=== PATIENT | female | born 1960 | race African-American/Black ===

== ENCOUNTER 2016-12-22 10:35 | Emergency (ER) | payer BC, OTHER ==
--- NOTE | 2016-12-22 10:47 | PDOC ---
History of Present Illness - General History Source: Patient Exam Limitations: No Limitations - History of Present Illness Initial Comments: 12/22/16 12:22 The patient is a 56 year old female with a significant PMH of seizures who presents to the emergency department via EMS s/p seizure immediately prior to arrival. The patient reports being at a store and paying for her items when she began to seize up. The patient believes the seizure to have lasted about 5 minutes and denies losing consciousness during this time. She reports almost hitting her head on the counter but denies any injuries. The patients seizure was witnessed by store shoppers and EMS was promptly called. The patient reports compliance with her medications. She denies any recent medication changes. She notes that she has not had a seizure in years, but notes that this episode is consistent with her previous episodes. The patient denies chest pain, shortness of breath, headache and dizziness. Denies fever, chills, nausea, vomit, diarrhea and constipation. Denies dysuria, frequency, urgency and hematuria. Allergies: NKA Past surgical history: None reported. Social history: No reported cigarette, alcohol, or drug use. PCP: Check-ups at [address] [place] [address]. <Bari Johnson - Last Filed: 12/22/16 12:22> - General History Source: Patient Exam Limitations: No Limitations <Bari Darby - Last Filed: 12/22/16 14:50> - General Chief Complaint: Seizure Stated Complaint: SEIZURE Time Seen by Provider: 12/22/16 10:45 Past History <Bari Johnson - Last Filed: 12/22/16 12:22> <Bari Darby - Last Filed: 12/22/16 14:50> - Past Medical History Allergies/Adverse Reactions: Allergies Allergy/AdvReac Type Severity Reaction Status Date / Time No Known Allergies Allergy Verified 12/22/16 10:48 Home Medications: Ambulatory Orders Phenobarbital 30 mg PO QID 12/22/16 Phenytoin Na Extended [Dilantin -] 100 mg PO QID 12/22/16 Review of Systems - Review of Systems Able to Perform ROS?: Yes Comments:: 12/22/16 12:22 GENERAL/CONSTITUTIONAL: (+) Seizure. No fever or chills. No weakness. HEAD, EYES, EARS, NOSE AND THROAT: No change in vision. No ear pain or discharge. No sore throat. CARDIOVASCULAR: No chest pain or shortness of breath. RESPIRATORY: No cough, wheezing, or hemoptysis. GASTROINTESTINAL: No nausea, vomiting, diarrhea or constipation. GENITOURINARY: No dysuria, frequency, or change in urination. MUSCULOSKELETAL: No joint or muscle swelling or pain. No neck or back pain. SKIN: No rash NEUROLOGIC: No headache, vertigo, or loss of consciousness. ENDOCRINE: No increased thirst. No abnormal weight change. HEMATOLOGIC/LYMPHATIC: No anemia, easy bleeding, or history of blood clots. ALLERGIC/IMMUNOLOGIC: No hives or skin allergy. <Bari Johnson - Last Filed: 12/22/16 12:22> *Physical Exam - Vital Signs Last Vital Signs Temp Pulse Resp BP Pulse Ox 98.1 F 122 H 20 159/104 99 12/22/16 10:48 12/22/16 10:48 12/22/16 10:48 12/22/16 10:48 12/22/16 10:48 - Physical Exam Comments: 12/22/16 12:23 GENERAL: Awake, alert, and fully oriented, in no acute distress HEAD: No signs of trauma EYES: PERRLA, EOMI, sclera anicteric, conjunctiva clear ENT: Auricles normal inspection, hearing grossly normal, nares patent, oropharynx clear without exudates. Moist mucosa NECK: Normal ROM, supple, no lymphadenopathy, JVD, or masses LUNGS: Breath sounds equal, clear to auscultation bilaterally. No wheezes, and no crackles HEART: Regular rate and rhythm, normal S1 and S2, no murmurs, rubs or gallops ABDOMEN: Soft, nontender, normoactive bowel sounds. No guarding, no rebound. No masses EXTREMITIES: Normal range of motion, no edema. No clubbing or cyanosis. No cords, erythema, or tenderness NEUROLOGICAL: Cranial nerves II through XII grossly intact. Normal speech, normal gait.No deficits to light touch and temperature in face, upper extremities and lower extremities. 5/5 motor strength in extremities. Finger to nose normal. Toes are downgoing bilaterally. SKIN: Warm, Dry, normal turgor, no rashes or lesions noted. <Bari Johnson - Last Filed: 12/22/16 12:22> Heart Score/ECG Review #1 ECG reviewed & interpreted by me at: 10:50 12/22/16 12:06 NSR 112, LVH, no std/lauro, QTC 453 msec, no HOCM, no WPW, no brugada <Bari Darby - Last Filed: 12/22/16 14:50> ED Treatment Course - LABORATORY CBC & Chemistry Diagram: 12/22/16 10:52 - ADDITIONAL ORDERS Additional order review: Laboratory Results 12/22/16 10:52 Urine Color Yellow Urine Appearance Cloudy Urine pH 5.0 Urine Protein 3+ H Urine Glucose (UA) Negative Urine Ketones Negative Urine Blood Negative Urine Nitrite Negative Urine Bilirubin Negative Urine Urobilinogen Negative Urine RBC 21 Urine WBC 7 Ur Epithelial Cells Few Urine Bacteria Rare Urine Mucus Rare Urine Yeast Rare - Medications Given in the ED: ED Medications Discontinued Medications Generic Name Dose Route Start Last Admin Trade Name Freq PRN Reason Stop Dose Admin Sodium Chloride 1,000 mls @ 1,000 mls/hr 12/22/16 10:48 12/22/16 11:43 Normal Saline - IV 12/22/16 11:47 1,000 mls/hr ASDIR STA Administration <Bari Johnson - Last Filed: 12/22/16 12:22> - LABORATORY CBC & Chemistry Diagram: 12/22/16 10:52 12/22/16 12:50 <Bari Darby - Last Filed: 12/22/16 14:50> Medical Decision Making - Medical Decision Making 12/22/16 10:51 A portion of this note was documented by scribe services under my direction. I have reviewed the details of the note, within reason, and agree with the documentation with the following case summary and management plan written by me. Patient treated in the ED. Nursing notes are reviewed and incorporated into the medical decision-making. Vital signs reviewed. Peripheral IV access obtained by the nurse, laboratory studies are drawn and sent, reviewed and interpreted by myself. Vital Signs Temp Pulse Resp BP Pulse Ox 98.1 F 122 H 20 159/104 99 12/22/16 10:48 12/22/16 10:48 12/22/16 10:48 12/22/16 10:48 12/22/16 10:48 56-year-old pleasant female with history of seizures on 30 mg of phenobarbital every 6 hours, Dilantin 100 mg every 6 hours, reports compliance to medications presents with general tonic clonic seizure. Patient reports her last seizure episode was many years ago. Reports adherence to her medications. Patient was awoken up this morning in her usual state of health. Was waiting at a grocery store when she had Carlos witnessed seizure that lasted for short duration. No urinary or bowel and condoms. Patient denies head trauma. She reports feeling dazed very briefly but returned back to baseline. Denies chest pain shortness of breath. States this was consistent with her prior seizures. We'll send a Dilantin. I suspect this is likely seizure. We'll obtain labs, observe patient and if patient is unremarkable, patient to be discharged home with neurology follow-up. 12/22/16 14:45 CBC, BMP 12/22/16 10:52 12/22/16 12:50 CMP Sodium 138 mmol/L (136-145) 12/22/16 12:50 Potassium 4.0 mmol/L (3.5-5.1) 12/22/16 12:50 Chloride 103 mmol/L (98-107) 12/22/16 12:50 Carbon Dioxide 23 mmol/L (21-32) 12/22/16 12:50 Anion Gap 12 (8-16) 12/22/16 12:50 BUN 5 mg/dL (7-18) L 12/22/16 12:50 Creatinine 0.6 mg/dL (0.55-1.02) 12/22/16 12:50 Creat Clearance w eGFR > 60 (>60) 12/22/16 12:50 Random Glucose 93 mg/dL (74-106) 12/22/16 12:50 Calcium 8.8 mg/dL (8.5-10.1) 12/22/16 12:50 Total Bilirubin 0.3 mg/dL (0.2-1.0) 12/22/16 12:50 AST 11 U/L (15-37) L 12/22/16 12:50 ALT 17 U/L (12-78) 12/22/16 12:50 Alkaline Phosphatase 154 U/L (45-117) H 12/22/16 12:50 Creatine Kinase 122 IU/L (26-192) 12/22/16 12:50 Troponin I < 0.02 ng/ml (0.00-0.05) 12/22/16 12:50 Total Protein 7.5 g/dl (6.4-8.2) 12/22/16 12:50 Albumin 3.6 g/dl (3.4-5.0) 12/22/16 12:50 Urine Test Results Urine Color Yellow 12/22/16 10:52 Urine Appearance Cloudy 12/22/16 10:52 Urine pH 5.0 (5.0-8.0) 12/22/16 10:52 Urine Protein 3+ (NEGATIVE) H 12/22/16 10:52 Urine Glucose (UA) Negative (NEGATIVE) 12/22/16 10:52 Urine Ketones Negative (NEGATIVE) 12/22/16 10:52 Urine Blood Negative (NEGATIVE) 12/22/16 10:52 Urine Nitrite Negative (NEGATIVE) 12/22/16 10:52 Urine Bilirubin Negative (NEGATIVE) 12/22/16 10:52 Urine RBC 21 /hpf (0-3) 12/22/16 10:52 Urine WBC 7 /hpf (3-5) 12/22/16 10:52 Ur Epithelial Cells Few /hpf (FEW) 12/22/16 10:52 Urine Bacteria Rare /hpf (NONE SEEN) 12/22/16 10:52 Urine Mucus Rare 12/22/16 10:52 Phenytoin 5.2 (Low) The patient does have a neurologist at the [facility]. However, they are unavailable on the weekends. The patient is aware that her dilantin level is low. She states that she will walk into clinic tomorrow morning (which she states she is able to do). The patient has been given a copy of her blood work and will readjust her medications with her doctors. The patient has been stable and feels well I discussed the physical exam findings, ancillary test results and final diagnoses with the patient. I answered all of the patient's questions. The patient was satisfied with the care received and felt comfortable with the discharge plan and treatment plan. The patient will call their primary care physician within 24 hours to arrange follow-up and will return to the Emergency Department with any new, persistant or worsening symptoms. <Bari Darby - Last Filed: 12/22/16 14:50> *DC/Admit/Observation/Transfer - Attestations Scribe Attestion: 12/22/16 12:23 Documentation prepared by Bari Johnson, acting as medical legal investigator for Bari Darby MD. <Bari Johnson - Last Filed: 12/22/16 12:22> - Discharge Dispostion Admit: No <Bari Darby - Last Filed: 12/22/16 14:50> Diagnosis at time of Disposition: Seizure - Discharge Dispostion Disposition: HOME Condition at time of disposition: Stable - Referrals Referrals: STAFF,NOT ON [Primary Care Provider] - - Patient Instructions Printed Discharge Instructions: Seizure Disorder -- Adult Additional Instructions: Your dilantin level is low at 5.2 Please inform your doctor tomorrow morning and have your medication readjusted. If you have repeat seizures or feel like one is coming up, please return to the ER.
[2016-12-22] MEDS ORDERED: SODIUM CHLORIDE 1,000 ML IV STA (10:48)
[2016-12-22 10:51] VITALS: TEMP 98.1; BMI 38.7
--- NOTE | 2016-12-22 10:57 | EKG ---
Test Reason : Blood Pressure : / mmHG Vent. Rate : 112 BPM Atrial Rate : 112 BPM P-R Int : 164 ms QRS Dur : 094 ms QT Int : 332 ms P-R-T Axes : 025 -21 035 degrees QTc Int : 453 ms SINUS TACHYCARDIA LEFT AXIS DEVIATION NO PREVIOUS ECGS AVAILABLE Confirmed by DAWIT BERRIOS MD ([id number]) on 12/22/2016 10:57:19 AM Referred By: Confirmed By:DAWIT BERRIOS MD
[2016-12-22 11:58] LABS: URINE APPEARANCE CLOUDY; URINE BILIRUBIN NEGATIVE (NEGATIVE); URINE BLOOD NEGATIVE (NEGATIVE); URINE COLOR YELLOW; URINE GLUCOSE (UA) NEGATIVE (NEGATIVE); URINE KETONE NEGATIVE (NEGATIVE); URINE NITRITE NEGATIVE (NEGATIVE); URINE UROBILINOGEN NEGATIVE mg/dL (0.2-1.0)
[2016-12-22 11:59] LABS: URINE PROTEIN 3+ (NEGATIVE)
[2016-12-22 12:00] LABS: URINE BACTERIA RARE /hpf (NONE SEEN); URINE MUCUS RARE; URINE RBC 21 /hpf (0-3); URINE WBC 7 /hpf (3-5); YEAST RARE
[2016-12-22 12:37] LABS: MEAN CELL VOLUME 82.9 fl (80-96); WHITE BLOOD COUNT 6.6 K/mm3 (4.0-10.0)
[2016-12-22 12:38] LABS: MCH 27.4 pg (25.7-33.7); MEAN PLT VOLUME 7.7 fl (7.5-11.1); PLATELET COUNT 414 K/MM3 (134-434); RDW 14.9 % (11.6-15.6)
[2016-12-22 12:39] LABS: TOTAL CELLS COUNTED 100
[2016-12-22 14:33] LABS: ALBUMIN 3.6 g/dl (3.4-5.0); ANION GAP 12 (8-16); BILIRUBIN,TOTAL 0.3 mg/dL (0.2-1.0); CALCIUM 8.8 mg/dL (8.5-10.1); CO2 23 mmol/L (21-32); CREATININE 0.6 mg/dL (0.55-1.02); GLUCOSE,RANDOM 93 mg/dL (74-106); SGOT/AST 11 U/L (15-37); SGPT/ALT 17 U/L (12-78); TOT PROT 7.5 g/dl (6.4-8.2)
[2016-12-22 14:36] LABS: ALK PHOS 154 U/L (45-117); CPK 122 IU/L (26-192); TROPONIN I < 0.02 ng/ml (0.00-0.05)
[2016-12-22 15:14] LABS: URINE LEUK ESTERASE Negative (NEGATIVE)
[2016-12-22 15:42] VITALS: BP 115/96; PULSE 99
== END 2016-12-22 15:42 | disposition home or self-care (01) ==
LOC: JER 10:35
PROC: 3E0337Z Introduction of Electrolytic and Water Balance Substance into Peripheral Vein, Percutaneous Approach (ICD-10-PCS; principal; 2016-12-22)
DX: R56.9 Unspecified convulsions (principal)
CPT/HCPCS: 36415; 80053; 80185; 81003; 81015; 82550; 84484; 85025; 93005; 93010; 96361; 99284-25